=== PATIENT | female | born 1965 | race Caucasian/White ===

== ENCOUNTER 2018-08-21 12:26 | Emergency (ER) | payer SELFPAY ==
[~2018-08-21] VITALS: Ht 167.6 cm; Wt 72.7 kg
[~2018-08-21 12:26] MED LIST: HCTZ 25MG25 MG PO; LORTAB 5/500 501 TAB PO; PERCOCET 5/321 UDTAB PO
[2018-08-21 12:36] VITALS: TEMP 98
[2018-08-21] MEDS ORDERED: ZESTORETIC 12.51 TAB PO (14:06)
[2018-08-21] MEDS ORDERED: CEPHALEXIN500 M1 PO (15:34)
[2018-08-21 15:54] VITALS: BP 130/88; PULSE 90
== END 2018-08-21 15:57 | disposition home or self-care (01) ==
LOC: COL.ER 12:26
DX: R04.0 Epistaxis (principal); I10 Essential (primary) hypertension; F17.210 Nicotine dependence, cigarettes, uncomplicated

== ENCOUNTER 2018-08-24 10:12 | Emergency (ER) | payer SELFPAY ==
[~2018-08-24] VITALS: Ht 170.2 cm; Wt 72.7 kg
[~2018-08-24 10:12] MED LIST changes: +CEPHALEXIN500 M1 PO; +ZESTORETIC 12.51 TAB PO
[2018-08-24 10:16] VITALS: BP 123/81; PULSE 110; TEMP 97.9
== END 2018-08-24 10:45 | disposition home or self-care (01) ==
LOC: COL.ER 10:12
DX: J34.89 Other specified disorders of nose and nasal sinuses (principal); I10 Essential (primary) hypertension; F17.210 Nicotine dependence, cigarettes, uncomplicated

== ENCOUNTER 2023-10-14 19:57 | Inpatient (IN) | payer OTHER ==
[~2023-10-14] VITALS: Ht 170.2 cm; Wt 113.5 kg
[2023-10-14] VITALS (47 sets, daily range): BP systolic 156; BP diastolic 110; PULSE 84; TEMP 97.8; O2SAT 95–100
[2023-10-14 20:26] LABS: HEMOGLOBIN 13.7 g/dl (12.5-16.0); MEAN CELL VOLUME 90 fl (80.0-100.0); MEAN CORPUSCULAR HEMOGLOBIN 28 pg (27-31); MEAN CORPUSCULAR HGB CONC 31 g/dl (33.0-37.0); MEAN PLATELET VOLUME 12.7 fl (7.4-10.4); PLATELET COUNT 149 K/mm3 (130-400); RED BLOOD COUNT 4.91 M/mm3 (4.10-5.30); REDCELL DISTRIBUTION WIDTH-CV 15.4 % (11.5-14.5)
[2023-10-14] MEDS ORDERED: Furosemide 40 MG/4 ML VIAL IV ONE (20:30)
[2023-10-14 20:46] LABS: ALBUMIN 3.4 gm/dL (3.4-4.8); BILIRUBIN,TOTAL 0.7 mg/dL (0.2-1.2); CALCIUM 9.1 mg/dL (8.4-10.2); CREATININE, serum 1.1 mg/dL (0.57-1.11); TOTAL PROTEIN 6.9 gm/dL (6.2-8.1)
[2023-10-14 20:52] LABS: TROPONIN-I 0.027 ng/mL (0.00-0.033)
[2023-10-14 20:57] LABS: INR 1.3 (0.8-3.0); PROTHROMBIN TIME 14.2 SECONDS (9.7-12.8)
[2023-10-14 21:00] LABS: HYPOCHROMIA 1+; LYMPHOCYTE 15 % (20.0-51.0); NEUTROPHILS 76 % (42.0-75.2); PLATELET ESTIMATE NORMAL (NORMAL)
[2023-10-14] MEDS ORDERED: Polyethylene Glycol 3350 17 GM PDS PO PRN (21:30)
[2023-10-15] VITALS (934 sets, daily range): BP systolic 115–183; BP diastolic 64–135; PULSE 75–101; TEMP 98.1–99.8; O2SAT 78–100
[2023-10-15] MEDS ORDERED: Nitroglycerin/D5W 250 ML IV SCH ×2 (00:15→02:45)
[2023-10-15 05:07] LABS: BASO % 0.4 % (0.0-2.0); EOS % 0.8 % (0.0-4.0); GRAN # 3.1 K/mm3 (1.4-6.5); GRAN % 62.3 % (42.2-75.2); HEMATOCRIT 43.9 % (37.0-47.0); HEMOGLOBIN 13.3 g/dl (12.5-16.0); LYMPH % 20.6 % (20.0-51.0); MEAN CELL VOLUME 92 fl (80.0-100.0); MEAN CORPUSCULAR HEMOGLOBIN 28 pg (27-31); MEAN CORPUSCULAR HGB CONC 30 g/dl (33.0-37.0); MEAN PLATELET VOLUME 13.2 fl (7.4-10.4); MONO # 0.8 K/mm3 (0.1-0.6); MONO % 15.7 % (1.7-9.3); PLATELET COUNT 129 K/mm3 (130-400); RED BLOOD COUNT 4.78 M/mm3 (4.10-5.30); REDCELL DISTRIBUTION WIDTH-CV 15.6 % (11.5-14.5)
[2023-10-15 05:15] LABS: CALCIUM 8.8 mg/dL (8.4-10.2); CREATININE, serum 1.06 mg/dL (0.57-1.11); MAGNESIUM 2.1 mg/dL (1.6-2.6); POTASSIUM 4.7 mmol/L (3.5-4.5)
[2023-10-15] MEDS ORDERED: Furosemide 40 MG/4 ML VIAL IV SCH (08:00)
--- NOTE | 2023-10-15 08:38 | NUR ---
RECEIVED REPORT FROM NIGHTSHIFT SHAHANA BORJA. PATIENT RESTING IN BED WITH EYES CLOSED. BED IN A LOW POSITION. CALL LIGHT WITHIN REACH.
--- NOTE | 2023-10-15 08:43 | NUR ---
HEAD TO TOE ASSESSMENT COMPLETED. PATIENT IS ALERT AND ORIENTED. PUPILS EQUAL AND REACTIVE. PATIENT WEARS GLASSES TO READ. HEART RATE IS REGULAR WITH FREQUENT PVC's NOTED ON THE MONITOR. PATIENT REMAINS ON NITRO DRIP AT THIS TIME FOR BLOOD PRESSURE MANAGEMENT. LUNG SOUNDS ARE COARSE AND DIMINISHED THROUGHOUT. BOWEL SOUNDS ACTIVE X4. PULSES PRESENT AND EQUAL BILATERALLY IN UPPER AND LOWER EXTREMITIES. PATIENT HAS +4 EDEMA FROM MID CHEST TO TOES. SKIN IS VERY TIGHT ALL OVER AND APPEARS MOTTLED IN COLOR. PATIENT HAS EISENBERG IN PLACE D/T IV DIURETICS. BILATERAL LOWER EXTREMITIES ARE VERY RED AND DRY. PATIENT HAS NO COMPLAINTS OF PAIN THIS MORNING. MEDICATIONS ADMINISTERED PER EMAR. BREAKFAST MENU PROVIDED FOR PATIENT. BED IN A LOW POSITION. CALL LIGHT WITHIN REACH.
[2023-10-15] MEDS ORDERED: TYLENOL 325MG325 MG PO (09:31)
[2023-10-15] MEDS ORDERED: ADVIL200 MG PO (09:32)
[2023-10-15] MEDS ORDERED: WOMEN'S DAILY1 TAB PO (09:32)
[2023-10-15] MEDS ORDERED: ASPIRIN E.C. 8181 MG PO (09:32)
[2023-10-15] MEDS ORDERED: Acetaminophen 325 MG TAB PO PRN (10:45)
[2023-10-15] MEDS ORDERED: Bisacodyl 5 MG TAB PO SCH (10:58)
[2023-10-15] MEDS ORDERED: Thiamine 100 MG TAB PO SCH (10:59)
[2023-10-15] MEDS ORDERED: Folic Acid 1 MG TAB PO SCH (11:00)
[2023-10-15] MEDS ORDERED: Albuterol/Ipratropium 3 MG-0.5 MG/3 ML Neb Soln IH PRN (11:00)
--- NOTE | 2023-10-15 11:26 | NUR ---
Beverage Distiller, Kaylah Montgomery, and Dr. Sepulveda met with patient for the interdisciplinary assessment. Patient does not have a PCP and reports she is uncertain if she has Ambetter still. Patient is currently on oxygen and reports she is not on oxygen at baseline. HOLLIE and Kaylah Montgomery, met with patient to complete assessment. Patient lives in [place] by herself. Patient does not have a PCP at this time. Pharmacy is [facility]. No issues affording medications at this time, patient is aware of [facility] if needing assistance with lowering the cost. No DPOA-HC at this time but is potentially interested in completing one. SW left the blank form with the patient and will follow up. Patient does not have any DME. Patient is not on oxygen at baseline. Patient reports she normally is independent with ADLS but yesterday she had a lot of pressure in her stomach and her friend had to assist with pulling her pants up. Patient drives herself to appointments but if she is unable to her friend, Jazmin, whom was at bedside can assist with transportation. Best points of contact: Ellen (mother) [phone] and Jazmin (friend) P# [phone]. Patient would like to return home at time of discharge. Patient is uncertain if her Ambetter is still in effect, if not, patient is familiar with the [facility]. HOLLIE contacted financial counselor, Johanna, whom confirmed patient has Ambetter insurance through July. Johanna is going to meet with patient to see if she can apply for Medicaid. HOLLIE provided PCP list of options in the area. Discharge plan: Home
[2023-10-15] MEDS ORDERED: NS 100 ML IV SCH (11:36)
[2023-10-15] MEDS ORDERED: Iohexol 300 - 100 ML VIAL IV ONE (11:36)
--- NOTE | 2023-10-15 11:45 | NUR ---
chip loft worker left a message with [facility] chip loft worker, Breann, to determine if any provider is accepting new patients with Ambetter.
[2023-10-15 13:19] LABS: CHOLESTEROL RISK RATIO 3.6
[2023-10-15] MEDS ORDERED: hydrALAZINE 20 MG/ML 1 ML VIAL IV PRN (13:45)
--- NOTE | 2023-10-15 13:45 | NUR ---
DR. HARRINGTON & JERARDO, RN IN ROOM TO SPEAK WITH PATIENT ABOUT HEART CATHETERIZATION AND DISCUSS ECHO RESULTS. CONSENT PRINTED FOR HAND PAINTER NUSES TO OBTAIN SIGNATURE. BELLO, HAND PAINTER STAFF IN ROOM AT 1415 TO OBTAIN CONSENT.
[2023-10-15] MEDS ORDERED: 1/2 NS 1,000 ML IV SCH ×2 (14:00→16:15)
[2023-10-15] MEDS ORDERED: Albuterol/Ipratropium 3 MG-0.5 MG/3 ML Neb Soln IH SCH (14:00)
--- NOTE | 2023-10-15 15:06 | NUR ---
SEE MERGE FOR PROCEDURE DOCUMENTATION
[2023-10-15] MEDS ORDERED: Iohexol 350 - 100 ML VIAL INCOR ONE (15:46)
[2023-10-15] MEDS ORDERED: Heparin 1,000 UNITS/ML 10 ML Multi-Dose VIAL IV SCH (15:56)
[2023-10-15] MEDS ORDERED: niCARdipine (Cath Lab) 100 MCG/ML 10 ML VIAL INCOR SCH (15:56)
[2023-10-15] MEDS ORDERED: fentaNYL 50 MCG/ML 2 ML VIAL IV SCH (15:58)
[2023-10-15] MEDS ORDERED: Midazolam 2 MG/2 ML VIAL IV SCH (15:59)
[2023-10-15] MEDS ORDERED: Furosemide 100 MG in NS 100 ML IV SCH (16:15)
--- NOTE | 2023-10-15 17:43 | NUR ---
Resting in bed with eyes shut. Slightly drowsy from cathode ray tube salvage processor procedure but denies any concerns at this time. VS stable.
[2023-10-15] MEDS ORDERED: Budesonide Neb Susp 0.5 MG/2 ML AMP IH SCH (19:00)
[2023-10-15] MEDS ORDERED: Formoterol Neb Soln 20 MCG/2 ML UD IH SCH (19:00)
[2023-10-16] VITALS (1086 sets, daily range): BP systolic 101–129; BP diastolic 64–85; PULSE 77–88; TEMP 98.1–99.9; O2SAT 84–100
[2023-10-16 01:18] LABS: BASO % 0.3 % (0.0-2.0); EOS # 0.1 K/mm3 (0.0-0.7); EOS % 0.8 % (0.0-4.0); GRAN # 4.3 K/mm3 (1.4-6.5); GRAN % 72.3 % (42.2-75.2); HEMATOCRIT 42.6 % (37.0-47.0); HEMOGLOBIN 13.4 g/dl (12.5-16.0); LYMPH # 0.9 K/mm3 (1.2-3.4); LYMPH % 14.9 % (20.0-51.0); MEAN CELL VOLUME 89 fl (80.0-100.0); MEAN CORPUSCULAR HEMOGLOBIN 28 pg (27-31); MEAN CORPUSCULAR HGB CONC 32 g/dl (33.0-37.0); MEAN PLATELET VOLUME 12.9 fl (7.4-10.4); MONO # 0.7 K/mm3 (0.1-0.6); MONO % 11.5 % (1.7-9.3); PLATELET COUNT 136 K/mm3 (130-400); RED BLOOD COUNT 4.81 M/mm3 (4.10-5.30); REDCELL DISTRIBUTION WIDTH-CV 15.1 % (11.5-14.5)
[2023-10-16 01:31] LABS: CREATININE, serum 1.18 mg/dL (0.57-1.11); POTASSIUM 3.8 mmol/L (3.5-4.5)
[2023-10-16] MEDS ORDERED: Magnesium Sulfate 4% 50 ML IV ONE ×2 (03:30→11:15)
--- NOTE | 2023-10-16 06:56 | NUR ---
PT HAVING BIGEMINAL PVC'S. BLOOD PRESSURE IS STABLE. ONE DOSE OF HYDRALZINE GIVEN FOR SBP GREATER THAT 160. PROVIDER CONTACTED OVERNIGHT FOR RUN OF VTACH. MORNING LABS TAKEN EARLY. MAG WAS LOW. PROVIDER CALLED AND 2 GM IV MAG ORDERED. WILL CONTINUE TO MONITOR. REMAINS STABLE ON ROUNDS. RESPIRATIONS EVEN AND UNLABORED. NO SIGN OF DISTRESS AT THIS TIME.
[2023-10-16] MEDS ORDERED: Magnesium Sulfate 4 GM/50 ML IV SOLN IV SCH (10:00)
--- NOTE | 2023-10-16 15:58 | NUR ---
contact worker met with Dr. Sepulveda regarding discharge plan for patient. Dr. Sepulveda reports PT and OT were recommending post acute. Patient's insurance is Ambetter which does not have skilled benefits. SW contacted [facility] director to determine if they could accept. IPR is reviewing client's information.
--- NOTE | 2023-10-16 16:05 | NUR ---
Patient needs a PCP. HOLLIE Student contacted [facility] and they are unable to accept patient's insurance. [facility] accepts patient's insurance but earliest appointment is November. [facility] does not accept her insurance. HOLLIE Student left a voicemail for [facility] to get back with her. HOLLIE provided Medicare.gov list of options to patient for IPR and SNF.
--- NOTE | 2023-10-16 19:00 | NUR ---
REPORT RECEIVED FROM HUONG HARKINS. PATIENT RESTING IN BED VISITING WITH FAMILY. NO SIGNS OF ACUTE DISTRESS NOTED AT THIS TIME.
[2023-10-17] VITALS (859 sets, daily range): BP systolic 91–151; BP diastolic 60–89; PULSE 50–94; TEMP 97.9–98.6; O2SAT 76–100
[2023-10-17 04:47] LABS: BASO % 0.3 % (0.0-2.0); EOS # 0.1 K/mm3 (0.0-0.7); EOS % 1.3 % (0.0-4.0); GRAN # 4.1 K/mm3 (1.4-6.5); HEMATOCRIT 39.4 % (37.0-47.0); HEMOGLOBIN 12.6 g/dl (12.5-16.0); LYMPH % 16.3 % (20.0-51.0); MEAN CELL VOLUME 86 fl (80.0-100.0); MEAN CORPUSCULAR HEMOGLOBIN 28 pg (27-31); MEAN CORPUSCULAR HGB CONC 32 g/dl (33.0-37.0); MEAN PLATELET VOLUME 12.4 fl (7.4-10.4); MONO # 0.8 K/mm3 (0.1-0.6); MONO % 12.8 % (1.7-9.3); PLATELET COUNT 142 K/mm3 (130-400); RED BLOOD COUNT 4.58 M/mm3 (4.10-5.30)
[2023-10-17 05:05] LABS: CALCIUM 8.1 mg/dL (8.4-10.2); CREATININE, serum 1.11 mg/dL (0.57-1.11); POTASSIUM 3.1 mmol/L (3.5-4.5)
--- NOTE | 2023-10-17 07:00 | NUR ---
REPORT RECEIVED FROM HUONG GOULD. PT RESTING IN BED, VSS ON 2L O2 PER NC. LASIX DRIP INFUSING TO PERIPHERAL IV IN L FOREARM, IV SITE WNL. EISENBERG CATHETER IN PLACE TO DEPENDENT DRAINAGE. PT IS ALERT AND ORIENTED, CALL LIGHT IN REACH.
--- NOTE | 2023-10-17 10:03 | NUR ---
Follow-up with a michelle to [facility]. Patient is Adventism so receives visits from the religion. She prefers quiet and no guests at this time. She liked the michelle.
--- NOTE | 2023-10-17 10:06 | NUR ---
hatchery worker confirmed with [facility] that they do not accept patient with Ambetter insurance.
[2023-10-17] MEDS ORDERED: Furosemide 40 MG/4 ML VIAL IV SCH (10:27)
[2023-10-17] MEDS ORDERED: *Potassium Replacement Protocol MC SCH (10:30)
[2023-10-17] MEDS ORDERED: Magnesium Sulfate 2 GM/50 ML IV SOLN IV SCH (11:00)
--- NOTE | 2023-10-17 11:38 | NUR ---
bunker worker met with patient during clinical rounds. Patient is planning to complete her durable power of banking attorney for health care today. Worker arranged for patient to meet with Johanna (financial counselor) to apply for medicaid and disability. Patient has ambetter and verbalizes understanding that she will need to utilize [facility] unless she makes private pay arrangements with a physician office (she inquired if this was an option). Patient plans to return home with family, possibly this weekend. Patient will need oxygen for home. Discharge plan: Home with oxygen and possibly home health.
--- NOTE | 2023-10-17 13:24 | NUR ---
PT UP TO WORK W/ THERAPY, REQUIRES 2:1 ASSIST AND WALKER. GAIT STEADY BUT PT BECOMES TIRED QUICKLY. UP IN BEDSIDE CHAIR FOR LUNCH THEN TRANSFERRED BACK TO BED. BOTH LEGS WRAPPED UP TO KNEES W/ JOAO WRAPS AND SCD'S APPLIED ORDERED PER DR Demetrio DUDLEY FOR BLE 3+ EDEMA.
--- NOTE | 2023-10-17 13:32 | NUR ---
shortage worker met with patient and provided Medicare.gov share for home health. Worker contacted all agencies and [facility] is only agency that accepts Ambetter. Worker gave clinical referral and awaits [facility]'s assessment. [facility] states that patient will have an out of pocket expense and they will let us know that amount. [facility] will notify worker if they can accept Ambetter. Worker and patient discussed oxygen companies and a referral was given to [facility] [employer] to arrange home oxygen. Discharge plan: home with oxygen from [facility]. Awaiting if [facility] can accept and if the out of pocket expense is acceptable by the patient.
--- NOTE | 2023-10-17 14:58 | NUR ---
button station worker was notified by [facility] that they would be unable to start home health until patient is established with a PCP and has her first appointment. [facility] expressed they would contact social work for the updated out of pocket cost for home health for patient once she is established with a PCP.
--- NOTE | 2023-10-17 16:07 | NUR ---
PT ON THE FLOOR VIA WHEELCHAIR FROM ICU, BELONGINGS AT BEDSIDE AND PT ORIENTED TO ROOM. PT ON 2L NASAL CANNULA. PT DENIES NEEDS. BED IN LOWEST POSITION, CALL LIGHT IN REACH.
--- NOTE | 2023-10-17 16:30 | NUR ---
PT LAYING IN BED. PT ON 2L NASAL CANNULA. LEFT FOREARM AND RIGHT FOREARM INT PATENT. PT UPDATED ON FLUID RESTRICTION AND VERBALIZED UNDERSTANDING. BILATERAL LOWER EXTREMITES WRAPPED IN JOAO WRAP. ELGIN PATENT. PT DENIES TAKING MEDS BEFORE THIS HOSPITAL STAY. PT DENIES NEEDS. BED IN LOWEST POSITION, CALL LIGHT IN REACH
--- NOTE | 2023-10-17 16:45 | NUR ---
tar worker was notified by [facility] that patient's insurance ended in Decemeber and she does not have a PCP so they are unable to accept. SW met with patient to determine if she completed a Medicaid application and FAA. Patient reports she has not completed any paperwork during her stay. SW explained patient would likely discharge home without home health as they are unable to work with her if she does not have a PCP and patient would need to private pay without insurance. HOLLIE contacted whom expressed they completed an FAA and Medicaid application with patient. HOLLIE spoke with boom stick worker, Maye, whom reports the hospital received authorization from [facility] for patient's hospital stay. SW contacted [facility] to request that they double check her insurance as [facility] and they would like her to have home health even if it was not until she is established with a PCP after discharge. This way the patient is aware that it is an option after she has a PCP. HOLLIE faxed RT exercise oximetry test and updated oxygen order to [facility]. HOLLIE also secure emailed patient's FAA completed at the hospital to ensure patient receives her oxygen upon discharge. Discharge plan: Home with oxygen
[2023-10-17] MEDS ORDERED: Magnesium Oxide 400 MG TAB PO SCH (17:00)
--- NOTE | 2023-10-17 20:30 | NUR ---
UPON SHIFT ASSESSMENT, SHELBIE WAS RECIEVING BREATHING TREATMENT. SHE IS AXO X4, VS ARE WNL AND TELE IS NS. EISENBERG IS DRAINING NANCY CLEAR URINE. BLLE SHOW SIGNIFICANT EDEMA +3 AND GENERALIZED [id number]. SHE C/O OF CHEST TIGHTNESS R/T FLUID ACCUMULATION. EDUCATED PATIENT ON UPCOMING MED ADMINISTERATION OF LASIXS FOR DIURESIS. WILL CONTINUE TO EVALUATE CHEST PAIN. CARDIAC CATH IS NEGATIVE. CALL LIGHT WITHIN REACH
[2023-10-18] VITALS (12 sets, daily range): BP systolic 102–141; BP diastolic 67–91; PULSE 50–82; TEMP 97.6–98.5
--- NOTE | 2023-10-18 01:05 | NUR ---
CATHETER CARE PERFORMED
--- NOTE | 2023-10-18 03:22 | NUR ---
REMOVED SCDs AND JOAO WRAPS ON BLLE PER PATIENT REQUEST. APPLIED LOTION WELL. SMALL NECROTIC/ESCHAR SPOT NOTED ON LEFT [id number] APPROXIMATELY.
--- NOTE | 2023-10-18 03:27 | NUR ---
PATIENT STATES CHEST PAIN IMPROVED.
[2023-10-18 06:57] LABS: BASO % 0.3 % (0.0-2.0); EOS # 0.1 K/mm3 (0.0-0.7); EOS % 1.7 % (0.0-4.0); GRAN # 3.9 K/mm3 (1.4-6.5); GRAN % 66.3 % (42.2-75.2); HEMATOCRIT 40.3 % (37.0-47.0); HEMOGLOBIN 12.6 g/dl (12.5-16.0); LYMPH % 16.8 % (20.0-51.0); MEAN CELL VOLUME 88 fl (80.0-100.0); MEAN CORPUSCULAR HEMOGLOBIN 28 pg (27-31); MEAN CORPUSCULAR HGB CONC 31 g/dl (33.0-37.0); MEAN PLATELET VOLUME 12.9 fl (7.4-10.4); MONO # 0.9 K/mm3 (0.1-0.6); MONO % 14.6 % (1.7-9.3); PLATELET COUNT 137 K/mm3 (130-400); RED BLOOD COUNT 4.58 M/mm3 (4.10-5.30); REDCELL DISTRIBUTION WIDTH-CV 14.9 % (11.5-14.5)
[2023-10-18 07:13] LABS: CALCIUM 8.3 mg/dL (8.4-10.2); CREATININE, serum 1.01 mg/dL (0.57-1.11); POTASSIUM 3.5 mmol/L (3.5-4.5)
[2023-10-18] MEDS ORDERED: Potassium Bicarbonate/Citrate 20 MEQ Effervescent TAB PO SCH (08:00)
--- NOTE | 2023-10-18 20:00 | NUR ---
Initial shift assessment done- denies pain, states feels hot/afebrile, o2 at 2L/nc, tele on, Bilateral legs red/edematous, states shes been sleepingand would like her supper heated up/given sandwich box and supper tray- states she is really hungry!
--- NOTE | 2023-10-18 23:20 | NUR ---
Call from tele that pt had a 7 beat run of v-tach, then back to sinus,, pt has done this previously in the past few days-- did let Rodney S PA know and he will add orders if needed, VSS , pt was just waking up and moving around in bed,
[2023-10-19] VITALS (12 sets, daily range): BP systolic 104–124; BP diastolic 65–88; PULSE 55–75; TEMP 97.1–98.3
[2023-10-19 05:14] LABS: CALCIUM 8.3 mg/dL (8.4-10.2); CREATININE, serum 1.06 mg/dL (0.57-1.11); MAGNESIUM 1.8 mg/dL (1.6-2.6); POTASSIUM 3.9 mmol/L (3.5-4.5)
--- NOTE | 2023-10-19 05:16 | NUR ---
Did have another run of V-tach 12 beats per Tele, Rodney TRAN notified-- will get the morning labs now and has daily EKG,s. Pt states shes been very hungryand having snacks during the night- 02 at 2L/nc. Lotion to bilateral legs per request. VSS.
--- NOTE | 2023-10-19 08:15 | NUR ---
PATIENT ALERT AND ORIENTED X4. PATIENT REPORTS PAIN TO HER LEGS AND FEELS LIKE THEY BURN THROUGHOUT BELOW THE KNEES BILATERALY. PATIENT HAS EISENBERG IN PLACED WITH TEA COLOR URINE.PATIENT ON 2L O2/NC. PATIENT HAS BILATERAL PITTING EDEMA +3. CALL LIGHT WITHIN REACH. BED AT LOWEST POSITION. BED ALARM ON.
--- NOTE | 2023-10-19 11:47 | NUR ---
PATIENT HAD A RUN OF V-TACH [address] GROSS NOTIFIED. PCT lotioned patients legs bilateral per patient's request.
[2023-10-19] MEDS ORDERED: Gabapentin 300 MG CAP PO SCH (12:45)
[2023-10-19] MEDS ORDERED: traZODone 50 MG TAB PO SCH (21:00)
[2023-10-20] VITALS (11 sets, daily range): BP systolic 107–129; BP diastolic 71–77; PULSE 63–79; TEMP 98.1–98.6
--- NOTE | 2023-10-20 06:30 | NUR ---
REPORT RECEIVED FROM HUONG GARCIA
[2023-10-20 07:51] LABS: BASO % 0.4 % (0.0-2.0); EOS # 0.1 K/mm3 (0.0-0.7); GRAN # 3.5 K/mm3 (1.4-6.5); GRAN % 68.3 % (42.2-75.2); HEMATOCRIT 41.3 % (37.0-47.0); HEMOGLOBIN 12.7 g/dl (12.5-16.0); LYMPH # 0.8 K/mm3 (1.2-3.4); LYMPH % 16.1 % (20.0-51.0); MEAN CELL VOLUME 90 fl (80.0-100.0); MEAN CORPUSCULAR HEMOGLOBIN 28 pg (27-31); MEAN CORPUSCULAR HGB CONC 31 g/dl (33.0-37.0); MEAN PLATELET VOLUME 13.7 fl (7.4-10.4); MONO # 0.7 K/mm3 (0.1-0.6); MONO % 12.8 % (1.7-9.3); PLATELET COUNT 133 K/mm3 (130-400); RED BLOOD COUNT 4.59 M/mm3 (4.10-5.30); REDCELL DISTRIBUTION WIDTH-CV 15.1 % (11.5-14.5)
[2023-10-20 07:59] LABS: CALCIUM 8.7 mg/dL (8.4-10.2); CREATININE, serum 1.07 mg/dL (0.57-1.11); MAGNESIUM 1.9 mg/dL (1.6-2.6); POTASSIUM 3.9 mmol/L (3.5-4.5)
[2023-10-20] MEDS ORDERED: Furosemide 40 MG/4 ML VIAL IV SCH (09:00)
--- NOTE | 2023-10-20 09:00 | NUR ---
PT LAYING IN BED UPON ENTERING. ASSESSMENT DONE, MEDS GIVEN PER ORDER. PT DENIES PAIN BUT DESCRIBES BILATERAL LWOER EXTREMITIES "NO PAIN BUT THEYVE GOT HEAT TO THEM". BILATERAL LOWER EXTREMITIES HAVE ERYTHEMA, WARM TO TOUCH WITH SMALL RAISED BUMPS TO SKIN. PT ON 2L NASAL CANNULA. INT TO LEFT FOREARM AND RIGHT FOREARM PATENT. EISENBERG PATENT. LUNG SOUNDS DIMINISHED. PRODUCTIVE COUGH NOTED PER PT. PT UPDATED ON FLUID RESTRICTION AND VERBALIZED UNDERSTANDING. PT VOICES NOT SLEEPING WELL LAST NIGHT DUE TO VITALS AND WANTS TO BE LEFT ALONE MUCH POSSIBLE TO REST. BED IN LOWEST POSITION, CALL LIGHT IN REACH, BED ALARM ON
[2023-10-20] MEDS ORDERED: cefTRIAXone 2 G in Water For Injection,Sterile 20 ML IV SCH (09:30)
--- NOTE | 2023-10-20 09:39 | NUR ---
social group worker attended clinical rounding and was informed pt can potentially discharge tomorrow. Pt completed an FAA and Medicaid application with Car Body Mechanic Johanna. HOLLIE spoke with Johanna and MAYNOR Kenney who stated insurance is inactive vs active using different tools. SW met with patient and informed her she will discharge with home oxygen through [facility]. Pt was agreeable to this. She reports she does not have insurance when SW discussed HH. SW advised this would not be covered then. Pt verbalized understanding. She inquired about healthy food options that deliverto her home. SW informed her of Meals on Wheels and sometimes staffing issues need patients to strip picker the meals. Pt reports she could do that, but she is interested on [employer] and getting heart healthy, low sodium meals. SW asked if pt would like to speak with the Director Records Management. She was agreeable to this. SW informed Director Records Management Belen to speak with pt. HOLLIE spoke with Johanna, Car Body Mechanic who states patient does not have insurance on her side, but they did complete a Medicaid application and FAA. HOLLIE Townsend informed this SW that patient was referred to [facility], but they declined due to inactive insurance and not being able to see patient without an active PCP. Discharge Plan: Home with [facility] oxygen
--- NOTE | 2023-10-20 14:39 | NUR ---
8MLS OF WATER REMOVED FROM EISENBERG BALLOON. EISENBERG REMOVED, PT TOLERATED WELL. CATHETER TIP INTACT AND PT DENIES NEEDS. BED IN LOWEST POSITION, CALL LIGHT IN REACH
--- NOTE | 2023-10-20 14:50 | NUR ---
PT OFFERED SHOWER AND AGREES AT A LATER TIME. PT WANTS TO SLEEP
--- NOTE | 2023-10-20 18:29 | NUR ---
INT TO LEFT FOREARM AND RIGHT FOREARM REMOVED. 20G STARTED IN LEFT FOREARM. PT TOLERATED WELL
--- NOTE | 2023-10-20 18:35 | NUR ---
PATIENT RESTING IN BED WATCHING TV AT THIS TIME WITH NO ACUTE DISTRESS NOTED. PATIENT ON 2 LITERS OF OXYGEN VIA NC. INT TO LEFT FOREARM INTACT WITH NO COMPLICATIONS NOTED. PATIENT DENIES ANY NEEDS AT THIS TIME. PATIENT CARE ASSUMED FROM LUCIO AT THIS TIME. BED IN LOW POSITION WITH WHEELS LOCKED WITH RAILS UP X3 AND CALL LIGHT WITHIN REACH.
--- NOTE | 2023-10-20 20:30 | NUR ---
PATIENT RESTING IN BED WATCHING TV AT THIS TIME WITH NO ACUTE DISTRESS NOTED. PATIENT ON 2 LITERS OF OXYGEN VIA NC. INT TO LEFT FOREARM INTACT WITH NO COMPLICATIONS NOTED. ASSESSMENT AND MEDICATION ADMINISTRATION COMPLETED AT THIS TIME. PATIENT TOLERATED WELL. PATIENT DENIES ANY NEEDS. BED IN LOW POSITION WITH WHEELS LOCKED WITH RAILS UP X3 AND CALL LIGHT WITHIN REACH.
[2023-10-20] MEDS ORDERED: traZODone 100 MG TAB PO SCH (21:00)
[2023-10-21] VITALS (11 sets, daily range): BP systolic 92–112; BP diastolic 59–81; PULSE 41–74; TEMP 97–98.4
[2023-10-21 06:45] LABS: CALCIUM 8.5 mg/dL (8.4-10.2); CREATININE, serum 0.93 mg/dL (0.57-1.11); MAGNESIUM 1.9 mg/dL (1.6-2.6); POTASSIUM 3.9 mmol/L (3.5-4.5)
[2023-10-21] MEDS ORDERED: Furosemide 80 MG TAB PO SCH (09:00)
--- NOTE | 2023-10-21 09:42 | NUR ---
early childhood education worker informed patient will potentially discharge tomorrow. She has pending oxygen set up through [facility]. Discharge Plan: Home with oxygen
--- NOTE | 2023-10-21 09:50 | NUR ---
ASSESSMENT COMPLETE AND MEDICATIONS GIVEN ORDERED. AT THIS TIME SHE IS REQUESTING A COPY OF THE MEDICATIONS SHE HAS BEEN GIVEN WHILE INPATIENT. DURING ASSESSMENT, HER NOSE STARTED BLEEDING SO ICE PACK WAS PROVIDED AND CONTACT MADE WITH RESPIRATORY THERAPY TO POSSIBLY GET HUMIDIFIED O2.
--- NOTE | 2023-10-21 19:05 | NUR ---
PATIENT RESTING IN BED WITH TV ON WITH NO ACUTE DISTRESS NOTED. PATIENT ON 2 LITERS OF OXYGEN VIA NC. INT TO LEFT FOREARM INTACT WITH NO COMPLICATIONS NOTED. TELEMETRY INTACT. PATIENT ASKED FOR SANDWICH TRAY BECAUSE SHE SLEPT THROUGH DINNER AND TRAY WAS REMOVED. SANDWICH TRAY GIVEN. PATIENT DENIES ANY OTHER NEEDS. PATIENT CARE ASSUMED FROM [facility]. BED IN IN LOW POSITION WITH WHEELS LOCKED WITH RAILS UP X3 AND CALL LIGHT WITHIN REACH.
--- NOTE | 2023-10-21 19:15 | NUR ---
PATIENT RESTING IN BED WITH TV ON WITH NO FAMILY PRESENT WITH NO ACUTE DISTRESS NOTED. PATIENT ON 2 LITERS OF OXYGEN VIA NC. INT TO LEFT FOREARM INTACT WITH NO COMPLICATIONS NOTED. ASSESSMENT COMPLETED. PATIENT TOLERATED WELL. PATIENT DENIES ANY NEEDS AT THIS TIME. BED IN LOW POSITION WITH WHEELS LOCKED WITH RAILS UP X3 AND CALL LIGHT WITHIN REACH.
--- NOTE | 2023-10-21 21:45 | NUR ---
PATIENT RESTING IN BED WATCHING TV WITH NO ACUTE DISTRESS NOTED. PATIENT ON 2 LITERS OF OXYGEN VIA NC. MEDICATION ADMINISTRATION COMPLETED AT THIS TIME. PATIENT TOELRATED WELL. PATIENT REQUESTED ANOTHER SANDWICH TRAY AND WAS GIVEN. PATIENT DENIES ANY OTHER NEEDS. BED IN LOW POSITION WITH WHEELS LOCKED WITH RAILS UP X3 AND CALL LIGHT WITHIN REACH.
--- NOTE | 2023-10-22 | NUR ---
PATIENT REFUSED MIDNIGHT VITAL SIGNS.
[2023-10-22 08:30] VITALS: BP 122/75; PULSE 73; TEMP 97.7
[2023-10-22] MEDS ORDERED: CEFTIN500 MG PO (08:41)
[2023-10-22 08:42] LABS: BASO % 0.5 % (0.0-2.0); EOS # 0.1 K/mm3 (0.0-0.7); EOS % 3.1 % (0.0-4.0); GRAN # 2.5 K/mm3 (1.4-6.5); HEMATOCRIT 40.8 % (37.0-47.0); HEMOGLOBIN 12.8 g/dl (12.5-16.0); LYMPH % 23.4 % (20.0-51.0); MEAN CELL VOLUME 89 fl (80.0-100.0); MEAN CORPUSCULAR HEMOGLOBIN 28 pg (27-31); MEAN CORPUSCULAR HGB CONC 31 g/dl (33.0-37.0); MEAN PLATELET VOLUME 12.5 fl (7.4-10.4); MONO # 0.5 K/mm3 (0.1-0.6); MONO % 12.8 % (1.7-9.3); PLATELET COUNT 133 K/mm3 (130-400)
[2023-10-22] MEDS ORDERED: TOPROL XL 50MG50 MG PO (08:42)
[2023-10-22] MEDS ORDERED: NEURONTIN300 MG/CAP PO (08:42)
[2023-10-22] MEDS ORDERED: FOLIC ACID 11 MG/TA1 PO (08:43)
[2023-10-22] MEDS ORDERED: DESYREL 100MG100 MG PO (08:43)
[2023-10-22] MEDS ORDERED: LASIX 80MG TABL80 MG PO (08:43)
[2023-10-22] MEDS ORDERED: MAG-OX 400400 MG/TAB PO (08:43)
[2023-10-22] MEDS ORDERED: NATURE'S BLEND100 M2 PO (08:44)
[2023-10-22] MEDS ORDERED: PROAIR HFA0.09 MG/AC IH (08:44)
[2023-10-22] MEDS ORDERED: 00186-0372-20 IH (08:45)
[2023-10-22 09:00] VITALS: BP_SYST 122
[2023-10-22 09:00] LABS: CALCIUM 8.8 mg/dL (8.4-10.2); CREATININE, serum 0.88 mg/dL (0.57-1.11); MAGNESIUM 1.9 mg/dL (1.6-2.6); POTASSIUM 4.7 mmol/L (3.5-4.5)
--- NOTE | 2023-10-22 10:04 | NUR ---
PT SPO2 84% WITH MILD SOA WHILE IN BED. UNABLE TO GET UP AT THIS TIME WAITING ON THERAPY. 2L/NC NEEDED AT REST FOR SPO2 94%.
--- NOTE | 2023-10-22 11:09 | NUR ---
chemical plant worker attended clinical rounding and was informed pt can discharge home with home oxygen through [facility]. HOLLIE notes patient has no insurance and cannot get HH as reccomended. New ex ox was ordered as the last one was completed 10/17/23. HOLLIE sent the new ex oximetry to [facility] who will complete this today. HOLLIE notes patient advocate, Director Ame, and Large Animal Veterinarian Dionne all involved to address patient's concerns regarding going home. HOLLIE informed the RN Marce that patient needs to be seen at [facility] due to no insurance coverage. Discharge Plan: Home with home oxygen
[2023-10-22] MEDS ORDERED: OXYGEN NASAL.CANN (11:11)
[2023-10-22 11:49] VITALS: BP 118/76; PULSE 70; TEMP 97.8
--- NOTE | 2023-10-22 13:00 | NUR ---
Patient was provided with discharge information, all questins answered. IV access and telemetry were discontinued. Patient states her friend will pick her up at 1430.
[2023-10-22 14:15] VITALS: BP_SYST 118
== END 2023-10-22 13:50 | disposition home or self-care (01) | DRG 286 ==
LOC: COL.ER 19:57 → ICU 21:28 → MEDICAL 21:28
PROVIDERS: Emergency Medicine; Internal Medicine; Physician Assistant; ADMIT Internal Medicine
PROC: 4A023N7 Measurement of Cardiac Sampling and Pressure, Left Heart, Percutaneous Approach (ICD-10-PCS; principal; 2023-10-15)
PROC: B2111ZZ Fluoroscopy of Multiple Coronary Arteries using Low Osmolar Contrast (ICD-10-PCS; 2023-10-15)
DX: I11.0 Hypertensive heart disease with heart failure (principal); I50.21 Acute systolic (congestive) heart failure; J96.01 Acute respiratory failure with hypoxia; I16.1 Hypertensive emergency; L03.115 Cellulitis of right lower limb; I47.10 Supraventricular tachycardia, unspecified; E87.3 Alkalosis; N17.9 Acute kidney failure, unspecified; Z20.822 Contact with and (suspected) exposure to COVID-19; J44.9 Chronic obstructive pulmonary disease, unspecified; I42.9 Cardiomyopathy, unspecified; E87.6 Hypokalemia; G47.00 Insomnia, unspecified; I08.3 Combined rheumatic disorders of mitral, aortic and tricuspid valves; F17.210 Nicotine dependence, cigarettes, uncomplicated; F10.10 Alcohol abuse, uncomplicated; Z79.82 Long term (current) use of aspirin; Z79.899 Other long term (current) drug therapy; Z90.89 Acquired absence of other organs
CPT/HCPCS: C1769; J0360; J0696; J1644; J1650; J1920; J1940; J2250; J2305; J2404; J3010; J3475; Q9967